=== PATIENT | female | born 1945 | race Caucasian/White ===

== ENCOUNTER 2017-04-08 11:22 | Emergency (ER) | payer OTHER ==
[2017-04-08] MEDS ORDERED: FAMOTIDINE 20 MG TAB ONE (11:29)
[2017-04-08 11:33] VITALS: TEMP 97.5
--- NOTE | 2017-04-08 11:33 | EDPHY ---
H & P Stated Complaint: bee sting, allergic Time Seen by Provider: 04/08/17 11:32 - Personal History Current Tetanus Diphtheria and Acellular Pertussis (TDAP): Unsure - Medical/Surgical History Hx Asthma: No Hx Chronic Respiratory Disease: No Hx Diabetes: No Hx Cardiac Disease: No Hx Renal Disease: No Hx Cirrhosis: No Hx Alcoholism: No Hx HIV/AIDS: No Hx Splenectomy or Spleen Trauma: No Other PMH: R PETER - Social History Smoking Status: Never smoked Constitutional: Initial Vital Signs Temperature (C) 36.4 C 04/08/17 11:30 Respiratory Rate 18 04/08/17 11:30 Blood Pressure 157/82 H 04/08/17 11:30 O2 Sat (%) 98 04/08/17 11:30 O2 Delivery Mode Room Air Allergies/Adverse Reactions: bee venom protein (honey bee) Allergy (Verified 04/08/17 11:33) Home Medications: Medication Instructions Recorded Synthroid 04/08/17 Medical Decision Making ED Course/Re-evaluation: CHIEF COMPLAINT: Wasp stings HISTORY OF PRESENT ILLNESS: The patient is a 71 y/o female 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 She was stung on both legs and her right hand. She has local swelling and pain at the site of each sting. With prior paper wasp stings she has developed significant swelling, so she took 25mg PO Benadryl at home to treat her symptoms. She denies any respiratory symptoms, airway or facial swelling, or other complaints. She is otherwise healthy. REVIEW OF SYSTEMS: A 10 point review of systems was performed and is negative with the exception of the elements mentioned in the history of present illness. PHYSICAL EXAM: HR, BP, O2 Sat, RR. Temp noted General Appearance: Alert, well hydrated, appropriate, and non-toxic appearing. Head: Atraumatic without scalp tenderness or obvious injury Eyes: Pupils equal, round, reactive to light and accommodation, EOMI, no trauma , no injection. Ears: Clear bilaterally, no perforation, normal landmarks Nose: Atraumatic, no rhinorrhea, clear. Throat: There is no erythema or exudates, no lesions, normal tonsils, mucus membranes moist. No angioedema. Uvula midline. No stridor. Neck: Supple, nontender, no lymphadenopathy. Respiratory: No retractions, no distress, no wheezes, and no accessory muscle use. Lungs are clear to auscultation bilaterally. Cardiovascular: Regular rate and rhythm, no murmurs, rubs, or gallops. Good capillary refill all extremities. Gastrointestinal: Abdomen is soft, nontender, non-distended, no masses, no rebound, no guarding, no peritoneal signs. Musculoskeletal: Mild right hand swelling. Normal active ROM of all extremities , atraumatic. Neurological: Alert, appropriate, and interactive. Nonfocal neuro exam. Skin: Mild localized swelling to her upper and lower left leg. No rashes, good turgor, no nodules on palpation. 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 No evidence of airway involvement or severe allergic reaction. She does not have indications for epi use at this time. 25mg IV Benadryl, 40mg IV Pepcid, and 60mg PO Prednisone administered for symptoms. Plan to monitor patient for rebound reaction then discharge home with standard allergic reaction precautions and EpiPen scripts. She is comfortable with this plan. Departure - Departure Disposition: Home, Routine, Self-Care Clinical Impression: Allergic reaction Qualifiers: Encounter type: initial encounter Qualified Code(s): T78.40XA - Allergy, unspecified, initial encounter Condition: Good Instructions: General Allergic Reaction (ED) Additional Instructions: Follow-up with your primary doctor within 72 hours. Use [id number] Benadryl as directed for itching or swelling. Return to the Emergency Department for shortness of breath, difficulty swallowing, difficulty breathing , worsening of rash, fever or other worsening of condition. Use EpiPen in case of allergic emergency. Referrals: Inessa Bates MD [Primary Care Provider] - As per Instructions Report Scribed for: Jorgito Marquis Report Scribed by: Dior Mahajan Date of Report: 04/08/17 Time of Report: 11:43
[2017-04-08] MEDS ORDERED: ACETAMINOPHEN 325 MG TAB PO ONE (11:36)
[2017-04-08] MEDS ORDERED: predniSONE 20 MG TAB PO ONE (11:50)
[2017-04-08] MEDS ORDERED: FAMOTIDINE 20 MG TAB PO ONE (11:51)
[2017-04-08 12:01] VITALS: BP 152/90; PULSE 63; RESP 16; O2SAT 94
== END 2017-04-08 12:11 | disposition home or self-care (01) ==
DX: T78.40XA Allergy, unspecified, initial encounter (principal)
CPT/HCPCS: 96374; 99284; J1200; J0171

== ENCOUNTER → 2017-12-13 | Outpatient (CLI) | payer OTHER | LOC: FIMAGING 12:53 | PROVIDERS: ATTEND Family Medicine | DX: Z13.820 Encounter for screening for osteoporosis (principal); M85.89 Other specified disorders of bone density and structure, multiple sites ==